=== PATIENT | female | born 1965 | race Caucasian/White ===

== ENCOUNTER 2020-12-29 09:37 | Emergency (ER) | payer OTHER, SELFPAY ==
--- NOTE | ~2020-12-29 | XR_ITS ---
EXAMINATION: XR hand LT min 3V, XR wrist LT min 3V EXAM DATE: 12/29/2020 10:07 INDICATION: Initial encounter following injury, with pain of the left wrist and hand. Fall. TECHNIQUE: Left hand frontal, lateral and oblique projections obtained and reviewed. Left wrist fron octavia, frontal with ulnar deviation, oblique and lateral projections obtained and reviewed. There is n o prior study for comparison. FINDINGS: There is acute closed posttraumatic nondisplaced fracture through the distal aspect of the radius identified on the frontal wrist projection extending into the radiocarpal joint. This finding has been indicated, marked on the examination for review, clinical correlation. Metacarpal bones, pha langes and carpal bones are unremarkable. There is mild polyarticular interphalangeal primary osteoar thritis. IMPRESSION: 1. Acute nondisplaced left distal radial metaphyseal intra-articular fracture. Reviewed, dictated and finalized at location A. IMPRESSION: 1. Acute nondisplaced left distal radial metaphyseal intra-articular fracture.
--- NOTE | 2020-12-29 09:41 | ED.UPPEXIN ---
HPI - Extremity Injury (Upper) General Chief Complaint: Extremity Injury, Upper Stated Complaint: left hand / wrist injury Time Seen by Provider: 12/29/20 09:40 Source: patient and RN notes reviewed History of Present Illness HPI narrative: Patient is a 55-year-old female who presents the urgent care with complaints of left hand and wrist pain. Patient states that she was walking down the steps of her trailer this morning and slipped on the last step going after her dog. Patient states that the hand is very painful and swollen. Patient has not done anything [id number] for her pain. Patient states that rotation and making a fist exacerbate her pain. Denies of hitting her head or any other injuries from the fall. No other acute complaints. No acute distress noted. Patient room plan of care. Some parts of this dictation were generated by voice recognition software and may contain typographical and/or grammatical inaccuracies. Related Data Home Medications Medication Instructions Recorded Confirmed dapagliflozin [Farxiga] 5 mg PO DAILY 12/29/20 12/29/20 dulaglutide [Trulicity] 0.75 mg SUBCUT WEEKLY 12/29/20 12/29/20 ergocalciferol (vitamin D2) 1,250 mcg PO WEEKLY 12/29/20 12/29/20 insulin glargine [Lantus Solostar See Rx Instructions .ROUTE .COMPLEX 12/29/20 12/29/20 U-100 Insulin] levothyroxine 150 mcg PO DAILY 12/29/20 12/29/20 losartan 75 mg PO DAILY 12/29/20 12/29/20 Allergies Allergy/AdvReac Type Severity Reaction Status Date / Time No Known Allergies Allergy Verified 12/29/20 09:44 Review of Systems Review of Systems: Narrative: CONSTITUTIONAL: Denies fever, chills, or sweats. EYES: Denies visual changes, redness, or discharge. ENT: Denies rhinorrhea, congestion, sore throat, or otalgia. CARDIOVASCULAR: Denies chest pain, palpitations, or edema. RESPIRATORY: Denies cough or dyspnea. GASTROINTESTINAL: Denies abdominal pain, nausea, vomiting, or diarrhea. GENITOURINARY: Denies dysuria or hematuria. SKIN: Denies rash or itching. MUSCULOSKELETAL: Reports of left hand and wrist pain NEUROLOGIC: Denies headache, numbness, or weakness. All other systems reviewed are negative, except as documented in HPI. PMFSH Comments At the time of my signature, I reviewed and agree with the nursing past medical, surgical, social, and family history. There is no relevant family history pertinent to the patient complaint. Exam Narrative: Exam Narrative: GENERAL: This is a well-nourished, well-developed patient, in no apparent distress. HEAD: normocephalic, atraumatic. EYES: PERRL. Sclera clear/white. Vision is grossly intact. EARS: External ears normal NOSE: External nose normal with no obvious nasal discharge, nares without redness, no rhinorrhea. THROAT: Mucous membranes moist NECK: Neck supple SKIN: warm, intact with no suspicious lesions or rash, good texture and turgor. NEURO: awake, alert, and oriented to person, place and time. There were no obvious focal neurologic abnormalities. EXTREMITIES: Moderate ecchymosis and mild edema noted to the fifth digit of the left hand. Mild ecchymosis to the fourth digit of the left hand. Mild ecchymosis noted to the thumb of the left hand with mild edema. Pain exacerbated with wrist rotation and flexion of the fingers. Positive strong left radial pulse with capillary refill less than 2 seconds. Course Vital Signs Vital signs: Vital Signs Temperature 98.1 F 12/29/20 09:44 Pulse Rate 91 12/29/20 09:44 Respiratory Rate 18 12/29/20 09:44 Blood Pressure 156/61 H 12/29/20 09:44 Pulse Oximetry 98 12/29/20 09:44 Temperature 98.1 F 12/29/20 09:59 Pulse Rate 91 12/29/20 09:59 Respiratory Rate 18 12/29/20 09:59 Blood Pressure 156/61 H 12/29/20 09:59 Pulse Oximetry 98 12/29/20 09:59 Reviewed-patient is informed that they may have pre-hypertension or hypertension based on a blood pressure reading in the department. I recommend the patient call the [facility]
[2020-12-29 09:44] VITALS: BP 156/61; PULSE 91; RESP 18; TEMP 36.7; O2SAT 98
[2020-12-29 09:59] VITALS: BP 156/61; PULSE 91; RESP 18; TEMP 36.7; O2SAT 98
== END 2020-12-29 10:40 | disposition home or self-care (01) ==
PROVIDERS: Emergency Provider Nurse Practitioner Family; PCP Family Medicine
DX: S52.572A Other intraarticular fracture of lower end of left radius, initial encounter for closed fracture (principal); W10.9XXA Fall (on) (from) unspecified stairs and steps, initial encounter; E11.42 Type 2 diabetes mellitus with diabetic polyneuropathy; Z90.711 Acquired absence of uterus with remaining cervical stump
CPT/HCPCS: 29125; 73110; 73130; 99204; A4565; G0463

== ENCOUNTER 2021-09-08 14:12 | Emergency (ER) | payer OTHER, SELFPAY ==
--- NOTE | ~2021-09-08 | XR_ITS ---
EXAMINATION: XR chest 2V DATE: 09/08/2021 15:13 INDICATION: Shortness of breath. TECHNIQUE: Frontal and lateral views of the chest were obtained. COMPARISON: None. FINDINGS: There are patchy airspace opacities involving all lung zones bilaterally. No pleural effusi on or pneumothorax. The heart size is normal. IMPRESSION: 1. Diffuse lung disease, most likely pneumonia such as COVID-19 pneumonia. Reviewed, dictated and finalized at location A. E GRINDER
[2021-09-08 14:34] VITALS: BP 177/81; PULSE 100; RESP 24; TEMP 36.7; O2SAT 100
--- NOTE | 2021-09-08 14:34 | ECG_ITS ---
Measurements Intervals [place] Rate: 95 P: 5 WI: 155 QRS: 22 QRSD: 89 T: 14 QT: 371 QTc: 468 Interpretive Statements SINUS RHYTHM BORDERLINE ST-T WAVE ABNORMALITY- ANT/INF LEADS BASELINE ARTIFACT- I, II, III, AVR, AVF BORDERLINE ECG Electronically Signed On 09-08-2021 20:06:18 [employer] by Florencio Moffett D.O.
--- NOTE | 2021-09-08 15:16 | ED.SOB ---
HPI - SOB/Dyspnea General Chief Complaint: Shortness of Breath/Dyspnea Stated Complaint: Jaw Pain/Shortness of Breath Time Seen by Provider: 09/08/21 14:51 Source: patient and RN notes reviewed History of Present Illness HPI Narrative: Patient is a 56-year-old female who presents the urgent care with complaints of runny nose, congestion, right jaw pain and facial pressure. Patient states is been going on for approximately 1 week and she has been exposed to Covid. Patient states she called her doctor this morning they refused to see her. Patient is visibly short of breath but is currently denying shortness of breath or chest pain. Patient states she does feel anxious. Patient was not vaccinated for Covid. States that she has had a normal appetite without any fever, chills, nausea or vomiting. Patient has remained hydrated. Has not taken anything [id number] for her symptoms. Some parts of this dictation were generated by voice recognition software and may contain typographical and/or grammatical inaccuracies. Related Data Home Medications Medication Instructions Recorded Confirmed dapagliflozin [Farxiga] 5 mg PO DAILY 12/29/20 09/08/21 dulaglutide [Trulicity] 0.75 mg SUBCUT WEEKLY 12/29/20 09/08/21 ergocalciferol (vitamin D2) 1,250 mcg PO WEEKLY 12/29/20 09/08/21 insulin glargine [Lantus Solostar See Rx Instructions .ROUTE .COMPLEX 12/29/20 09/08/21 U-100 Insulin] levothyroxine 150 mcg PO DAILY 12/29/20 09/08/21 losartan 75 mg PO DAILY 12/29/20 09/08/21 metformin 500 mg tablet 500 mg PO BID 12/30/20 09/08/21 Allergies Allergy/AdvReac Type Severity Reaction Status Date / Time Penicillins Allergy Unknown Unknown Verified 09/08/21 14:34 Review of Systems Review of Systems: CONSTITUTIONAL: Denies fever, chills, or sweats. EYES: Denies visual changes, redness, or discharge. ENT: Reports of sinus pressure, congestion, postnasal drainage, rhinorrhea and right jaw pain CARDIOVASCULAR: Denies chest pain, palpitations, or edema. RESPIRATORY: Denies cough or dyspnea. GASTROINTESTINAL: Denies abdominal pain, nausea, vomiting, or diarrhea. GENITOURINARY: Denies dysuria or hematuria. SKIN: Denies rash or itching. MUSCULOSKELETAL: Denies back pain, joint pain, or myalgia. NEUROLOGIC: Denies headache, numbness, or weakness. PSYCHIATRIC: Reports of anxiety All other systems reviewed are negative, except as documented in HPI. FORMERLY [facility], [facility] Past Medical History Medical History (Updated 09/08/21 @ 16:00 by LENIN Chapman) Diabetes Neuropathy Social History Social History (Updated 12/30/20 @ 11:23 by Yolanda Pickard MA) Smoking status: Former smoker Alcohol intake: never Comments At the time of my signature, I reviewed and agree with the nursing past medical, surgical, social, and family history. There is no relevant family history pertinent to the patient complaint. Exam Narrative: GENERAL: This is a well-nourished, well-developed patient. Appears fatigued HEAD: normocephalic, atraumatic. Frontal sinus tenderness EYES: PERRL. Sclera clear/white. Vision is grossly intact. Clear bilateral drainage with mild injected conjunctiva EARS: External ears normal, auditory canals clear and without drainage, TMs normal without perforation. Hearing grossly intact. NOSE: External nose normal with no obvious nasal discharge, nares without redness, clear to yellow rhinorrhea. THROAT: Mucous membranes moist, posterior pharynx clear. Moderate postnasal drainage NECK: Neck supple CARDIOVASCULAR: Regular rate and rhythm without murmurs, gallops, or rubs. RESPIRATORY: Clear to auscultation. Slight diminished right upper lung sounds SKIN: warm, intact with no suspicious lesions or rash, good texture and turgor. NEURO: awake, alert, and oriented to person, place and time. There were no obvious focal neurologic abnormalities. EXTREMITIES: No clubbing, cyanosis, or edema. Course Course Level of Care: Express Care Visit Vital Signs V
[2021-09-11 22:39] LABS: SARS-CoV-2 RNA PCR Negative
== END 2021-09-08 16:05 | disposition home or self-care (01) ==
PROVIDERS: Emergency Provider Nurse Practitioner Family; PCP Family Medicine
DX: U07.1 COVID-19 (principal); J12.82 Pneumonia due to coronavirus disease 2019; E11.9 Type 2 diabetes mellitus without complications; G62.9 Polyneuropathy, unspecified; Z87.891 Personal history of nicotine dependence
CPT/HCPCS: 71046; 87426; 93005; 99213; C9803; G0463; U0003; U0005

== ENCOUNTER 2021-09-08 19:58 | Emergency (ER) | payer OTHER, SELFPAY ==
[2021-09-08 20:29] VITALS: BP 160/84; PULSE 103; RESP 20; TEMP 36.2; O2SAT 100
--- NOTE | 2021-09-08 20:39 | PC.NURSE ---
meds instructions reviewed in detail with pt. she has better understanding of how to take them at home
--- NOTE | 2021-09-08 20:41 | PC.NURSE ---
pt decides not to wait to be seen by provider. pt was triaged
== END 2021-09-09 00:57 | disposition left against medical advice (07) ==
LOC: ANHED 20:45
PROVIDERS: PCP Family Medicine
DX: F41.9 Anxiety disorder, unspecified (principal)
CPT/HCPCS: 99199

== ENCOUNTER 2022-06-22 10:42 | Emergency (ER) | payer OTHER, SELFPAY ==
[2022-06-22 10:47] VITALS: BP 160/73; PULSE 86; RESP 14; TEMP 36.9; O2SAT 99
--- NOTE | 2022-06-22 10:48 | ED.NAVMDI ---
HPI - Nausea/Vomiting/Diarrhea General Chief complaint: Nausea/Vomiting/Diarrhea Stated complaint: Diarrhea Time Seen by Provider: 06/22/22 10:48 Source: patient and RN notes reviewed History of Present Illness HPI Narrative: Patient is a 57-year-old female presents the urgent care with complaints of diarrhea off and on for the last 6 months since her diabetic medication changes. 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 Patient denies any blood in the stool, nausea, vomiting or fever. No acute complaints. No acute distress noted. Patient read the plan of care. Some parts of this dictation were generated by voice recognition software and may contain typographical and/or grammatical inaccuracies. Related Data Home Medications Medication Instructions Recorded Confirmed dapagliflozin 5 mg tablet (Farxiga) 5 mg PO DAILY 12/29/20 09/08/21 dulaglutide 0.75 mg/0.5 mL 0.75 mg subcut WEEKLY 12/29/20 09/08/21 subcutaneous pen injector (Trulicity) ergocalciferol (vitamin D2) 1,250 1,250 mcg PO WEEKLY 12/29/20 09/08/21 mcg (50,000 unit) capsule levothyroxine 150 mcg tablet 150 mcg PO DAILY 12/29/20 09/08/21 losartan 25 mg tablet 75 mg PO DAILY 12/29/20 09/08/21 metformin 500 mg tablet 500 mg PO BID 12/30/20 09/08/21 Allergies Allergy/AdvReac Type Severity Reaction Status Date / Time Penicillins Allergy Unknown Unknown Verified 06/22/22 10:54 Review of Systems Review of Systems: CONSTITUTIONAL: Denies fever, chills, or sweats. EYES: Denies visual changes, redness, or discharge. ENT: Denies rhinorrhea, congestion, sore throat, or otalgia. CARDIOVASCULAR: Denies chest pain, palpitations, or edema. RESPIRATORY: Denies cough or dyspnea. GASTROINTESTINAL: Reports of 2 loose stools GENITOURINARY: Denies dysuria or hematuria. SKIN: Denies rash or itching. MUSCULOSKELETAL: Denies back pain, joint pain, or myalgia. NEUROLOGIC: Denies headache, numbness, or weakness. All other systems reviewed are negative, except as documented in HPI. [facility] Past Medical History Medical History (Updated 06/22/22 @ 11:04 by LENIN Chapman) Diabetes Neuropathy Social History Social History (Updated 12/30/20 @ 11:23 by Yolanda Pickard MA) Smoking status: Former smoker Alcohol intake: never Comments At the time of my signature, I reviewed and agree with the nursing past medical, surgical, social, and family history. There is no relevant family history pertinent to the patient complaint. Exam Narrative: GENERAL: This is a well-nourished, well-developed patient, in no apparent distress. HEAD: normocephalic, atraumatic. EYES: PERRL. Sclera clear/white. Vision is grossly intact. EARS: External ears normal NOSE: External nose normal with no obvious nasal discharge, nares without redness, no rhinorrhea. THROAT: Mucous membranes moist NECK: Neck supple GASTROINTESTINAL: Abdomen soft, non-tender, nondistended. Bowel sounds are hyperactive. No guarding. SKIN: warm, intact with no suspicious lesions or rash, good texture and turgor. NEURO: awake, alert, and oriented to person, place and time. There were no obvious focal neurologic abnormalities. EXTREMITIES: No clubbing, cyanosis, or edema. Course Course Level of Care: Express Care Visit Vital Signs Vital signs: Vital Signs Temperature 98.4 F 06/22/22 10:47 Pulse Rate 86 06/22/22 10:47 Respiratory Rate 14 06/22/22 10:47 Blood Pressure 160/73 H 06/22/22 10:47 Pulse Oximetry 99 06/22/22 10:47 Oxygen Delivery Room Air 06/22/22 10:47 Temperature 98.4 F 06/22/22 10:47 Pulse Rate 86 06/22/22 10:47 Respiratory Rate 14 06/22/22 10:47 Blood Pressure 160/73 H 06/22/22 10:47 Pulse Oximetry 99 06/22/22 10:47 Oxygen Delivery Room Air 06/22/22 10:47 Reviewed-patient is informed that they may have pre-hypertension or hypert
== END 2022-06-22 11:08 | disposition home or self-care (01) ==
PROVIDERS: Emergency Provider Nurse Practitioner Family; PCP Family Medicine
DX: R19.7 Diarrhea, unspecified (principal); E11.40 Type 2 diabetes mellitus with diabetic neuropathy, unspecified; Z87.891 Personal history of nicotine dependence; Z79.84 Long term (current) use of oral hypoglycemic drugs
CPT/HCPCS: 99211; G0463

== ENCOUNTER 2024-05-23 18:05 | Emergency (ER) | payer OTHER, SELFPAY ==
[2024-05-23 18:10] VITALS: BP 139/69; PULSE 85; RESP 16; TEMP 36.3; O2SAT 99
--- NOTE | 2024-05-23 18:40 | ED.URI ---
HPI - URI/Sore Throat General Chief Complaint: Upper Respiratory Infection Stated Complaint: Chest Congestion/Cough Time Seen by Provider: 05/23/24 18:27 Source: patient and RN notes reviewed Mode of arrival: ambulatory Limitations: no limitations History of Present Illness HPI Narrative: Patient presents today complaining of 1-2 week history of mild cough with rhinorrhea. She also reports a, ?rattling in the chest that she believes to be some chest congestion. Last time she felt this rattling she ended up having pneumonia. Denies fever or shortness of breath. She has tried no medication for symptoms prior to arrival. States that she was seen earlier today at [facility] ER. Labs were drawn and a chest x-ray was done, but she waited for several hours and did not receive the results and was not examined so she left. Related Data Home Medications Medication Instructions Recorded Confirmed dulaglutide 0.75 mg/0.5 mL 0.75 mg subcut WEEKLY 12/29/20 05/23/24 subcutaneous pen injector (Trulicity) ergocalciferol (vitamin D2) 1,250 1,250 mcg PO WEEKLY 12/29/20 05/23/24 mcg (50,000 unit) capsule levothyroxine 150 mcg tablet 150 mcg PO DAILY 12/29/20 05/23/24 losartan 25 mg tablet 75 mg PO DAILY 12/29/20 05/23/24 insulin degludec 100 unit/mL (3 1 unit subcut DIRECTED 05/23/24 05/23/24 mL) subcutaneous pen (Tresiba FlexTouch U-100 insulin) Allergies Allergy/AdvReac Type Severity Reaction Status Date / Time Penicillins Allergy Unknown Unknown Verified 06/22/22 10:54 Review of Systems Review of Systems: CONSTITUTIONAL: Denies body aches, fever, chills, or sweats. EYES: Denies visual changes, redness, or discharge. ENT: Denies rhinorrhea, sore throat, or otalgia.+ congestion CARDIOVASCULAR: Denies chest pain, palpitations, or edema. RESPIRATORY: Denies dyspnea.+ cough, chest congestion GASTROINTESTINAL: Denies abdominal pain, nausea, vomiting, or diarrhea. GENITOURINARY: Denies dysuria or hematuria. SKIN: Denies rash, itching, or wounds. MUSCULOSKELETAL: Denies back pain, joint pain, or myalgia. NEUROLOGIC: Denies headache, numbness, tingling, or weakness. PSYCH: Denies depression or anxiety. FORMERLY [facility] Past Medical History Medical History Diabetes Neuropathy Social History Social History Smoking status: Former smoker Alcohol intake: never Comments At time of signature, I have reviewed and agree with nursing past medical, surgical, social and family history unless otherwise noted. Please see nursing chart for further information. There is no relevant family history pertinent to the presenting complaint Exam Narrative: GENERAL: Well-appearing, well-nourished, and in no acute distress. HEAD: Normocephalic, atraumatic. EYES: EOMI. No redness or drainage. Conjunctivae normal. ENT: Mucous membranes pink and moist. Nares congested with rhinorrhea. TMs normal bilaterally. Throat normal. Uvula midline. NECK: Normal AROM. Supple. No lymphadenopathy. CHEST: No respiratory distress. Clear to auscultation. HEART: Regular rate and rhythm. No murmur appreciated. EXTREMITIES: Normal range of motion. No edema. SKIN: Warm, dry, no rash. Capillary refill normal. Normal skin turgor. NEURO: No focal deficits. Alert and oriented x3. Gait steady. PSYCH: Normal affect. No signs of depression or anxiety. Course Course Level of Care: Express Care Visit Vital Signs Vital signs: Vital Signs Temperature 97.4 F L 05/23/24 18:10 Pulse Rate 85 05/23/24 18:10 Respiratory Rate 16 05/23/24 18:10 Blood Pressure 139/69 05/23/24 18:10 Pulse Oximetry 99 05/23/24 18:10 Oxygen Delivery Room Air 05/23/24 18:10 Temperature 97.4 F L 05/23/24 18:10 Pulse Rate 85 05/23/24 18:10 Respiratory Rate 16 05/23/24 18:10 Blood Pressure 139/69 05/23/24 18
== END 2024-05-23 18:49 | disposition home or self-care (01) ==
PROVIDERS: Emergency Provider Nurse Practitioner
DX: J06.9 Acute upper respiratory infection, unspecified (principal); E11.40 Type 2 diabetes mellitus with diabetic neuropathy, unspecified; Z87.891 Personal history of nicotine dependence
CPT/HCPCS: 99211; G0463